=== PATIENT | female | born 1950 | race Caucasian/White ===

== ENCOUNTER 2020-09-03 11:55 | Emergency (ER) | payer MEDICARE, OTHER ==
[~2020-09-03] VITALS: Ht 170.2 cm; Wt 72.6 kg
== END 2020-09-03 14:22 | disposition home or self-care (01) ==
LOC: ER 11:55
DX: R10.31 Right lower quadrant pain (principal); M79.89 Other specified soft tissue disorders; M79.662 Pain in left lower leg
CPT/HCPCS: 93005; 93010; 93971; 99284-25

== ENCOUNTER → 2020-11-30 | Outpatient (CLI) | payer MEDICARE, OTHER | END | disposition home or self-care (01) | LOC: LAB SHORT 07:35 → LAB 07:35 | DX: R10.13 Epigastric pain (principal) | CPT/HCPCS: 83631 ==

== ENCOUNTER → 2021-02-21 | Outpatient (CLI) | payer MEDICARE, OTHER | LOC: LAB 14:30 → LAB SHORT 14:30 | DX: R30.0 Dysuria (principal) | CPT/HCPCS: 87086 ==

== ENCOUNTER 2021-03-25 06:24 | Day surgery (SDC) | payer MEDICARE, OTHER ==
[~2021-03-25] VITALS: Ht 170.2 cm; Wt 69.9 kg
[2021-03-25] MEDS ORDERED: EUTHYROX88 MCG PO (07:01)
[2021-03-25] MEDS ORDERED: ZOCOR20 MG PO (07:01)
[2021-03-25] MEDS ORDERED: XARELTO20 MG PO (07:02)
[2021-03-25] MEDS ORDERED: ENOX40I SC (07:03)
--- NOTE | 2021-03-25 07:19 | NUR ---
Ambulatory in [facility] warming gown applied. Patient states colon prep results clear. History, Chart, Medications and Allergies reviewed before start of procedure.Lungs clear T/O to Auscultation. Patient confirms NPO status and agrees with scheduled surgery. Pre-Op teaching done. Pt verbalizes understanding. Patient States Post-Procedure ride home has been arranged.
--- NOTE | 2021-03-25 08:03 | NUR ---
03/25/21 0803 Emily Baker History, Chart, Medications and Allergies reviewed before start of procedure. Patient confirms NPO status and agrees with scheduled surgery. 3-LEAD EKG REVIEWED WITH PHYSICIAN PRIOR TO START OF PROCEDURE. MONITOR INTACT WITH CONTINUOUS PULSE OXIMETRY AND INTERMITTENT BP. PATIENT DETERMINED TO BE ASA APPROPRIATE FOR PROPOFOL SEDATION PRIOR TO START OF PROCEDURE BY DR. ROSE.
--- NOTE | 2021-03-25 09:42 | NUR ---
Patient up to Ambulate independently. Gait steady. Discharge instructions reviewed with patient. Patient verbalizes understanding. Copy given to patient to take home. Discharged via wheelchair to private car for ride home.
== END 2021-03-25 09:44 | disposition home or self-care (01) ==
LOC: ORSCMMR 06:24 → ORD 08:00 → ORSCSDS 08:00 → ORSCMMR 09:44
PROVIDERS: Surgery
PROC: 0DBP8ZX Excision of Rectum, Via Natural or Artificial Opening Endoscopic, Diagnostic (ICD-10-PCS; principal; 2021-03-25 08:00)
PROC: 0DBH8ZX Excision of Cecum, Via Natural or Artificial Opening Endoscopic, Diagnostic (ICD-10-PCS; principal; 2021-03-25 08:00)
DX: R19.4 Change in bowel habit (principal); Z86.010 Personal history of colon polyps; D12.0 Benign neoplasm of cecum; K62.1 Rectal polyp; Z86.718 Personal history of other venous thrombosis and embolism; Z79.01 Long term (current) use of anticoagulants; E78.5 Hyperlipidemia, unspecified; E03.9 Hypothyroidism, unspecified; Z79.899 Other long term (current) drug therapy
CPT/HCPCS: 88305; J0461; J2704; J7120

== ENCOUNTER → 2022-09-20 | Outpatient (CLI) | payer MEDICARE, OTHER ==
[~2022-09-20] MED LIST: ENOX40I SC; EUTHYROX88 MCG PO; XARELTO20 MG PO; ZOCOR20 MG PO
[2022-09-20 16:08] LABS: Calcium, Blood 9.4 mg/dL (8.5-10.1); Creatinine, Blood 0.94 mg/dL (0.40-1.00); Potassium, Blood 4.3 mmol/L (3.5-5.5)
== END | disposition home or self-care (01) ==
LOC: LAB SHORT 14:35 → LAB 14:35
PROVIDERS: Physician Assistant
DX: I82.220 Acute embolism and thrombosis of inferior vena cava (principal); R10.30 Lower abdominal pain, unspecified
CPT/HCPCS: 80048

== ENCOUNTER → 2023-01-25 | Outpatient (CLI) | payer MEDICARE, OTHER | LOC: PLD 11:54 → LAB SHORT 11:54 | DX: D04.39 Carcinoma in situ of skin of other parts of face (principal); B88.0 Other acariasis | CPT/HCPCS: 88305 ==

== ENCOUNTER 2023-02-14 12:44 | Day surgery (SDC) | payer MEDICARE, OTHER ==
[~2023-02-14] VITALS: Ht 170.2 cm; Wt 72.5 kg
[~2023-02-14 12:44] MED LIST changes: -LANS15EC PO
--- NOTE | 2023-02-14 13:17 | NUR ---
02/14/23 1317 Kim Castillo IN AT 1310 [place] IN AT 1312
[2023-02-14] MEDS ORDERED: LANS15EC PO (13:19)
[2023-02-14 14:34] VITALS: BP 106/57
--- NOTE | 2023-02-14 14:40 | NUR ---
02/14/23 1440 Tiny Cary IV REMOVED CANNULA INTACT, PT ИВАН WELL. IV SITE WNL. PT DENIES NAUSEA AND PAIN
== END 2023-02-14 14:49 | disposition home or self-care (01) ==
LOC: ORSCSDS 12:44
PROVIDERS: Ophthalmology
PROC: 08RJ3JZ Replacement of Right Lens with Synthetic Substitute, Percutaneous Approach (ICD-10-PCS; principal; 2023-02-14 14:00)
DX: H25.11 Age-related nuclear cataract, right eye (principal); E78.5 Hyperlipidemia, unspecified; E03.9 Hypothyroidism, unspecified; F41.9 Anxiety disorder, unspecified; Z86.711 Personal history of pulmonary embolism; Z79.899 Other long term (current) drug therapy
CPT/HCPCS: 80053; 80061; 84443; 85025; J2001; J2250; J3010; J3301; J7040; V2632

== ENCOUNTER → 2023-02-14 | Outpatient (CLI) | payer MEDICARE, OTHER ==
[~2023-02-14] MED LIST changes: +LANS15EC PO
[2023-02-14 14:37] LABS: BASOPHILS ABSOLUTE AUTO 0.06 K/mm3 (0.00-0.23); BASOPHILS PERCENT AUTO 1 % (0-2); EOSINOPHILS ABSOLUTE AUTO 0.31 K/mm3 (0.00-0.68); EOSINOPHILS PERCENT AUTO 5 % (0-6); Hematocrit 44.3 % (33.0-51.0); Hemoglobin 14.6 g/dL (11.5-16.0); IMMATURE GRAN ABSOLUTE AUTO 0.01 K/mm3 (0.00-0.10); IMMATURE GRAN PERCENT AUTO 0 % (0-1); LYMPHOCYTES ABSOLUTE AUTO 1.77 K/mm3 (0.84-5.20); LYMPHOCYTES PERCENT AUTO 29 % (21-46); MONOCYTES PERCENT AUTO 8 % (4-13); Mean Corpuscular HGB 31.7 pg (26.0-34.0); Mean Corpuscular Volume 96 fL (80-100); Mean Platelet Volume 9.5 fL (9.1-12.4); NEUTROPHILS ABSOLUTE AUTO 3.46 K/mm3 (1.96-9.15); NEUTROPHILS PERCENT AUTO 57 % (41-73); Platelet Count 253 K/mm3 (150-400); RDW Coefficient Variation 12.4 % (11.7-14.2); RDW Standard Deviation 43.6 fL (35.1-46.3); White Blood Cell Count 6.11 K/mm3 (4.00-11.30)
[2023-02-14 15:46] LABS: Alanine Aminotransfer (ALT/SGP 30 U/L (12-78); Albumin/Globulin Ratio 1.2 (0.8-1.8); Alk Phos 65 U/L (50-136); Anion Gap Unable to Calculate mmol/L (6-16); Aspartate Aminotrans (AST/SGOT 16 U/L (12-37); Bilirubin, Total 0.4 mg/dL (0.1-1.0); Blood Urea Nitrogen 16 mg/dL (8-24); Bun/Creatinine Ratio 14.7 (12.0-20.0); CHOL/HDL RATIO 3.5; CO2, Blood 31 mmol/L (21-32); Calcium, Blood 9.5 mg/dL (8.5-10.1); Chloride, Blood 110 mmol/L (98-108); Cholesterol 198 mg/dL (50-200); Creatinine, Blood 1.09 mg/dL (0.40-1.00); Globulin, Blood 3.4 g/dL (2.2-4.0); Glomerular Filtration Rate 54 (60-); Glucose, Blood 124 mg/dL (70-99); HDL Cholesterol 57 mg/dL (>39); LDL/HDL RATIO 2.1; Low Density Lipoprotein Chol 121 mg/dL (0-110); Potassium, Blood 4.2 mmol/L (3.5-5.5); Sodium, Blood 140 mmol/L (136-145); Total Protein, Blood 7.4 g/dL (6.4-8.2); Triglycerides 101 mg/dL (30-160); Very Low Density Lipoprot Chol 20 mg/dL (6-32)
[2023-02-14 15:50] LABS: Thyroid Stimulating Hormone 0.395 uIU/mL (0.360-4.800)
== END | disposition home or self-care (01) ==
LOC: LAB SHORT 10:26 → LAB 10:26
PROVIDERS: Family Medicine
DX: I82.221 Chronic embolism and thrombosis of inferior vena cava (principal); E03.9 Hypothyroidism, unspecified; E78.5 Hyperlipidemia, unspecified
CPT/HCPCS: 80053; 80061; 84443; 85025

== ENCOUNTER 2023-02-21 12:37 | Day surgery (SDC) | payer MEDICARE, OTHER ==
[~2023-02-21] VITALS: Ht 170.2 cm; Wt 75.4 kg
[~2023-02-21 12:37] MED LIST changes: +LANS15EC PO
--- NOTE | 2023-02-21 13:13 | NUR ---
02/21/23 1313 Johnathan Bess CALL LIGHT WITHIN REACH. TETRACIANE IN LEFT EYE AT 1311 AND PLEMAITASETT IN AT 1313
[2023-02-21 14:28] VITALS: BP 101/59
--- NOTE | 2023-02-21 14:44 | NUR ---
02/21/23 1444 Mary Kay Almazan IV REMOVED WITH NO ISSUES. PT TOLERATED WELL
== END 2023-02-21 14:41 | disposition home or self-care (01) ==
LOC: ORSCSDS 12:37
PROVIDERS: Ophthalmology
PROC: 08RK3JZ Replacement of Left Lens with Synthetic Substitute, Percutaneous Approach (ICD-10-PCS; principal; 2023-02-21 14:00)
DX: H25.12 Age-related nuclear cataract, left eye (principal); Z96.1 Presence of intraocular lens; F41.9 Anxiety disorder, unspecified; Z86.711 Personal history of pulmonary embolism; E78.5 Hyperlipidemia, unspecified; E03.9 Hypothyroidism, unspecified; Z79.899 Other long term (current) drug therapy; Z87.891 Personal history of nicotine dependence
CPT/HCPCS: J2250; J3010; J3301; J7040; V2632

== ENCOUNTER → 2024-10-16 | Outpatient (CLI) | payer MEDICARE | LOC: LAB SHORT 15:32 → LAB 15:32 | DX: N39.0 Urinary tract infection, site not specified (principal) | CPT/HCPCS: 87077; 87086; 87186 ==

== ENCOUNTER → 2025-02-16 | Outpatient (CLI) | payer MEDICARE, OTHER ==
[~2025-02-16] MED LIST changes: +DULO30 PO; +SYNTHROID100 M14 PO; +Simvastatin40 MG PO; -ZOCOR20 MG PO
== END ==
LOC: LAB 09:11 → LAB SHORT 09:11
DX: N39.0 Urinary tract infection, site not specified (principal)
CPT/HCPCS: 87086